=== PATIENT | female | born 1970 | race Caucasian/White ===

== ENCOUNTER → 2016-12-08 | Outpatient (CLI) | payer BC ==
--- NOTE | 2016-12-08 13:45 | WOMENS IMAGING REPORT ---
EXAM DESCRIPTION: BILAT SCREENING MAMMO W/CAD COMPLETED DATE/TIME: 12/08/2016 1:32 pm REASON FOR STUDY: SCREENING MAMMO Z12.31 ENCNTR SCREEN MAMMOGRAM FOR MALIGNANT NEOPLASM OF MARCO ANTONIO COMPARISON: November 2014 and September 2013 TECHNIQUE: Standard craniocaudal and mediolateral oblique views of each breast recorded using digita l acquisition. LIMITATIONS: None. FINDINGS: No masses, calcifications or architectural distortion. No areas of suspicion. Read with the assistance of CAD. .[facility] - R2 Cenova Version 1.3 .[facility] - R2 Cenova Version 1.3 .[facility] - R2 Cenova Version 2.4 .[facility] - R2 Cenova Version 2.4 .[facility] - R2 Director Speech Language Version 9.2 IMPRESSION: NORMAL MAMMOGRAM. BIRADS 1. BREAST DENSITY: b. There are scattered areas of fibroglandular density. BIRAD: 1 NEGATIVE RECOMMENDATION: ROUTINE SCREENING COMMENT: The patient has been notified of the results by letter per SA requirements. Additional no tification policies are in place for contacting patient with suspicious or incomplete findings. Quality ID #225: The [employer] recommends an annual screening mammogram for women aged 40 years or over. This facility utilizes a reminder system to ensure that all patients receive reminder letters, and/or direct phone calls for appointments. This includes reminders for routine scr eening mammograms, diagnostic mammograms, or other Breast Imaging Interventions when appropriate. Th is patient will be placed in the appropriate reminder system. The [employer] (ACR) has developed recommendations for screening MRI of the breast s in certain patient populations, to be used in conjunction with mammography. Breast MRI surveillanc e may be appropriate for women with more than 20% lifetime risk of developing breast cancer as deter mined by genetic testing, significant family history of the disease, or history of mantle radiation f or Hodgkins Disease. ACR Practice Guidelines 2008. TECHNICAL DOCUMENTATION: FINDING NUMBER: (1) ASSESSMENT: (1) JOB ID: [id number] [employer]- All Rights Reserved
== END ==
LOC: WI 13:10
PROVIDERS: ATTEND Advanced Practice Midwife
DX: Z12.31 Encounter for screening mammogram for malignant neoplasm of breast (principal)
CPT/HCPCS: 77067; G0202

== ENCOUNTER → 2017-04-13 | Outpatient (CLI) | payer BC ==
--- NOTE | 2017-04-13 13:51 | RADIOLOGY REPORT (SQ) ---
EXAM DESCRIPTION: HYSTEROSALPINGOGRAM; HYSTERO CATH/INJECTION COMPLETED DATE/TIME: 04/13/2017 1:36 pm REASON FOR STUDY: ESURE CHECK COMPARISON: None. PROCEDURE: PRE-PROCEDURE: Procedure was explained to the patient. She was told to expect cramping d uring the procedure and possible spotting post procedure. Procedure: Under direct visual inspection, the cervix was cannulated with the hysterosalpingogram dev ice and contrast injected gradually under low pressure. TECHNIQUE: Temporal fluoroscopic images acquired during the procedure stored to PACS. FLUOROSCOPY TIME: Less than 1 second 9 digital radiographic images saved to PACS. LIMITATIONS: None. FINDINGS: UTERUS: No identified anomalies. No synechia. RIGHT ADNEXA: The Essure insert is in satisfactory position with the proximal end at or near the corn ua. There is no passage of contrast into or through the fallopian tube. LEFT ADNEXA: The Essure insert is in satisfactory position with the proximal end at or near the cornu a. There is no passage of contrast into or through the fallopian tube. POST PROCEDURE: The patient tolerated the procedure with no adverse side effects. IMPRESSION: THE ESSURE INSERTS ARE IN SATISFACTORY POSITION WITH SATISFACTORY BILATERAL FALLOPIAN TU BE OCCLUSION. COMMENT: Quality ID 145: Final reports for procedures using fluoroscopy that document radiation exp osure indices, or exposure time and number of fluorographic images (if radiation exposure indices are not available) TECHNICAL DOCUMENTATION: JOB ID: [id number] [employer]- All Rights Reserved Reading location - IP/workstation name: [email or web address]
--- NOTE | 2017-04-13 13:51 | RADIOLOGY REPORT (SQ) ---
EXAM DESCRIPTION: HYSTEROSALPINGOGRAM; HYSTERO CATH/INJECTION COMPLETED DATE/TIME: 04/13/2017 1:36 pm REASON FOR STUDY: ESURE CHECK COMPARISON: None. PROCEDURE: PRE-PROCEDURE: Procedure was explained to the patient. She was told to expect cramping d uring the procedure and possible spotting post procedure. Procedure: Under direct visual inspection, the cervix was cannulated with the hysterosalpingogram dev ice and contrast injected gradually under low pressure. TECHNIQUE: Temporal fluoroscopic images acquired during the procedure stored to PACS. FLUOROSCOPY TIME: Less than 1 second 9 digital radiographic images saved to PACS. LIMITATIONS: None. FINDINGS: UTERUS: No identified anomalies. No synechia. RIGHT ADNEXA: The Essure insert is in satisfactory position with the proximal end at or near the corn ua. There is no passage of contrast into or through the fallopian tube. LEFT ADNEXA: The Essure insert is in satisfactory position with the proximal end at or near the cornu a. There is no passage of contrast into or through the fallopian tube. POST PROCEDURE: The patient tolerated the procedure with no adverse side effects. IMPRESSION: THE ESSURE INSERTS ARE IN SATISFACTORY POSITION WITH SATISFACTORY BILATERAL FALLOPIAN TU BE OCCLUSION. COMMENT: Quality ID 145: Final reports for procedures using fluoroscopy that document radiation exp osure indices, or exposure time and number of fluorographic images (if radiation exposure indices are not available) TECHNICAL DOCUMENTATION: JOB ID: [id number] [employer]- All Rights Reserved Reading location - IP/workstation name: [email or web address]
== END ==
LOC: RAD 12:45
PROVIDERS: ATTEND Obstetrics & Gynecology
DX: Z30.2 Encounter for sterilization (principal)
CPT/HCPCS: 58340; 74740

== ENCOUNTER 2018-07-29 12:48 | Observation (INO) | payer BC ==
[2018-07-29] MEDS ORDERED: ASPIRIN 81 MG TABLET, CHEWABLE PO ONE (12:57)
--- NOTE | 2018-07-29 13:13 | EKG REPORT ---
SEVERITY:- ABNORMAL ECG - SINUS TACHYCARDIA DAVID, CONSIDER BIATRIAL ABNORMALITIES BORDERLINE INFERIOR Q WAVES BORDERLINE PROLONGED QT INTERVAL : Confirmed by: Shawn Mata MD 29-Jul-2018 13:12:20
[2018-07-29 13:16] LABS: ABSOLUTE EOSINOPHILS # (AUTO) 0.2 10^3/uL (0.0-0.6); ABSOLUTE LYMPHOCYTES (AUTO) 5.7 10^3/uL (0.5-4.7); ABSOLUTE MONOCYTES (AUTO) 0.3 10^3/uL (0.1-1.4); ABSOLUTE NEUT (AUTO) 3.3 10^3/uL (1.7-8.2); BASOPHILS % (AUTO) 0.3 % (0-2); EOSINOPHILS % (AUTO) 2.5 % (0-6); HEMOGLOBIN 14.9 g/dL (12.0-15.5); LYMPHOCYTES % (AUTO) 59.6 % (13-45); MEAN CORPUSCULAR HGB CONC 33.8 g/dL (32.0-36.0); MEAN CORPUSCULAR VOLUME 86 fl (80-97); MONOCYTES % (AUTO) 3.2 % (3-13); PLATELET COUNT 341 10^3/uL (150-450); RED BLOOD COUNT 5.13 10^6/uL (3.72-5.28); RED CELL DISTRIBUTION WIDTH 13.6 % (11.5-14.0); SEGMENTED NEUTROPHILS % (AUTO) 34.4 % (42-78); TOTAL CELLS COUNTED % (AUTO) 100 %; WHITE BLOOD COUNT 9.5 10^3/uL (4.0-10.5)
[2018-07-29 13:23] LABS: INTERNATIONAL RATION (INR) 1.01; PARTIAL THROMBOPLASTIN TIME 24.7 SEC (23.5-35.8); PROTHROMBIN TIME 13.8 SEC (11.4-15.4)
[2018-07-29 13:25] LABS: D-DIMER 1.27 ug/mL (0.00-0.50)
[2018-07-29 13:39] LABS: ALANINE AMINOTRANSFERASE 20 U/L (9-52); ALBUMIN 3.9 g/dL (3.5-5.0); ALKALINE PHOSPHATASE 89 U/L (38-126); ANION GAP 13 (5-19); ASPARTATE AMINO TRANSFERASE 17 U/L (14-36); BILIRUBIN,DIRECT 0.1 mg/dL (0.0-0.4); BILIRUBIN,TOTAL 1.3 mg/dL (0.2-1.3); BLOOD UREA NITROGEN 13 mg/dL (7-20); CALCIUM 9.2 mg/dL (8.4-10.2); CARBON DIOXIDE 23 mmol/L (22-30); CHLORIDE 105 mmol/L (98-107); CREATINE KINASE 66 U/L (30-135); GLUCOSE 155 mg/dL (75-110); POTASSIUM 3.5 mmol/L (3.6-5.0); SODIUM 141.2 mmol/L (137-145); TOTAL PROTEIN 6.4 g/dL (6.3-8.2)
--- NOTE | 2018-07-29 13:40 | RADIOLOGY REPORT (SQ) ---
EXAM DESCRIPTION: CHEST SINGLE VIEW COMPLETED DATE/TIME: 07/29/2018 1:33 pm REASON FOR STUDY: bed 7 sob elevated hr COMPARISON: None. EXAM PARAMETERS: NUMBER OF VIEWS: One view. TECHNIQUE: Single frontal radiographic view of the chest acquired. RADIATION DOSE: NA LIMITATIONS: None. FINDINGS: LUNGS AND PLEURA: No opacities, masses or pneumothorax. No pleural effusion. MEDIASTINUM AND HILAR STRUCTURES: No masses. Contour normal. HEART AND VASCULAR STRUCTURES: Heart normal in size. Normal vasculature. BONES: No acute findings. HARDWARE: None in the chest. OTHER: No other significant finding. IMPRESSION: 1. NO ACUTE RADIOGRAPHIC FINDING IN THE CHEST. TECHNICAL DOCUMENTATION: JOB ID: [id number] [employer]- All Rights Reserved Reading location - IP/workstation name: [email or web address]
[2018-07-29] MEDS ORDERED: NORMAL SALINE 1000 ML 1,000 ML IV ONE (13:44)
[2018-07-29] MEDS ORDERED: METHYLPREDNISOLONE INJ 125 MG/2 ML SDV IV ONE (13:45)
[2018-07-29] MEDS ORDERED: ENOXAPARIN SODIUM INJ 100 MG/1 ML DISP.SYRIN SUBCUT ONE (13:48)
[2018-07-29] MEDS: MAGNESIUM SULFATE/D5W 1 GM/100 ML RTUPB IV SCH ×2 (13:52→13:57)
[2018-07-29] MEDS: IPRATROPIUM/ALBUTEROL 0.5-2.5 MG/3 ML AMPUL NEB SCH ×2 (13:52→21:49)
[2018-07-29 14:00] LABS: TROPONIN I < 0.012 ng/mL
--- NOTE | 2018-07-29 14:01 | ER Document Report ---
ED General - General Chief Complaint: Low Blood Pressure Stated Complaint: DIZZY, SHORT OF BREATH Time Seen by Provider: 07/29/18 13:35 Primary Care Provider: BRODIE AMES MD [Primary Care Provider] - Follow up as needed Notes: 47-year-old female who states she was having lunch when she started to have some shortness of breath nausea and vomiting x1. She denies any chest pain, fevers, calf pain or leg swelling. No recent trips or travel. No history of similar symptomatology. The patient does state that she was given an albuterol inhaler a few years ago with bronchitis. She does state a mild nonproductive cough for greater than a month. No night sweats or night fevers. Patient is not on estrogen supplements. No family history of blood clotting disorders. No aggravating or relieving factors. Patient denies any history of smoking, COPD, or asthma. TRAVEL OUTSIDE OF THE [place] IN LAST 30 DAYS: No - Related Data Allergies/Adverse Reactions: iodine Allergy (Verified 07/29/18 12:58) Past Medical History - Social History Smoking Status: Never Smoker Family History: Reviewed & Not Pertinent, Other - See HPI Review of Systems - Review of Systems Constitutional: denies: Fever EENT: denies: Eye discharge, Nose congestion, Nose discharge Cardiovascular: Lightheaded. denies: Chest pain, Palpitations Respiratory: Short of breath, Wheezing. denies: Hemoptysis Gastrointestinal: denies: Vomiting Genitourinary: denies: Dysuria Musculoskeletal: denies: Leg swelling Skin: denies: Rash Neurological/Psychological: Other - no slurred speech -: Yes All other systems reviewed and negative Physical Exam - Vital signs Vitals: Resp 19 07/29/18 12:57 Notes: Reviewed vital signs and nursing note as charted by RN. CONSTITUTIONAL: Alert and oriented; patient has obvious tachypnea HEAD: Normocephalic; atraumatic EYES: PERRL; Conjunctivae clear, sclerae non-icteric ENT: Normal nose; no rhinorrhea; moist mucous membranes; pharynx without lesions noted NECK: Supple without meningismus; non-tender; no cervical lymphadenopathy, no masses CARD: Tachycardic and regular; no murmurs; symmetric distal pulses RESP: Patient has obvious tachypnea. Minimal wheezing bilaterally. No rhonchi or rales ABD/GI: Normal bowel sounds; non-distended; soft, non-tender; no palpable organomegaly or masses BACK: The back appears normal and is non-tender to palpation EXT: Normal ROM in all joints; non-tender to palpation; no edema SKIN: No acute lesions noted NEURO: CN 2-12 intact; 5/5 bilateral upper and lower extremity strength with sensation intact to light touch PSYCH: The patient's mood and manner are appropriate. Grooming and personal hyg iene are appropriate. Course - Re-evaluation Re-evalutation: Given the history and physical examination, we placed the patient on the monitor. We obtain an EKG as well as basic labs, d-dimer, and a BNP. Patient is on oxygen satting 92% and is tachycardic. My suspicion for pulmonary embolism is medium to high. No risk factors however. We will provide fluids, magnesium, and albuterol Atrovent inhaler, and reassess. 07/29/18 14:00 Breathing has improved slightly. Given my still persistent concern given the elevated d-dimer and patient's presentation, I will provide a one-time dose of Lovenox before the patient proceeds with a CTA of the chest. 07/29/18 14:04 EKG shows heart of 110, sinus tachycardia, normal axis, no ST elevation or depression. 07/29/18 15:00 CTA of the chest as recorded. Patient's wheezing has improved with the breathing treatments and magnesium. ABG is pending. - Vital Signs Vital signs: Temp Pulse Resp BP Pulse Ox 14 116/92 H 100 07/29/18 15:00 07/29/18 14:21 07/29/18 15:00 - Laboratory Result Diagrams: 07/29/18 13:00 07/29/18 13:00 Laboratory results interpreted by me: 07/29/18 07/29/18 07/29/18 13:00 13:00 13:00 Seg Neutrophils % 34.4 L Lymphocytes % 59.6 H Absolute Lymphocytes 5.7 H D-Dimer 1.27 H Potassium 3.5 L Glucose 155 H NT-Pro-B Natriuret Pep 07/29/18 13:00 Seg Neutrophils % Lymphocytes % Absolute Lymphocytes D-Dimer Potassium Glucose NT-Pro-B Natriuret Pep 244 H Critical Care Note - Critical Care Note Total time excluding time spent on procedures (mins): 45 Discharge - Discharge Clinical Impression: SOB (shortness of breath), Hypoxia, Tachycardia Dyspnea Qualifiers: Dyspnea type: unspecified Qualified Code(s): R06.00 - Dyspnea, unspecified Condition: Fair Disposition: ADMITTED OBSERVATION Admitting Provider: Ping (Hospitalist) Unit Admitted: Telemetry Referrals: BRODIE AMES MD [Primary Care Provider] - Follow up as needed
--- NOTE | 2018-07-29 14:50 | RADIOLOGY REPORT (SQ) ---
EXAM DESCRIPTION: CTA CHEST COMPLETED DATE/TIME: 07/29/2018 2:39 pm REASON FOR STUDY: 7; SOB COMPARISON: None. TECHNIQUE: CT scan of the chest performed using helical scanning technique with dynamic intravenous contrast injection. Images reviewed with lung, soft tissue and bone windows. Reconstructed coronal and sagittal MPR images reviewed. Additional 3 dimensional post-processing performed to develop Maximal Intensity Projection images (NH P). All images stored on PACS. All CT scanners at this facility use dose modulation, iterative reconstruction, and/or weight based d osing when appropriate to reduce radiation dose to as low as reasonably achievable (ALARA). [facility]: Dose Right [facility]: CareDose [facility]: Dose Right [facility]: Teradose 4D [facility]: [employer] CONTRAST TYPE AND DOSE: 81 mL Omnipaque 350- low osmolar. Contrast bolus adequate for pulmonary arteries and aorta. RENAL FUNCTION: BUN 13 creatinine 0.79. RADIATION DOSE: CT Rad equipment meets quality standard of care and radiation dose reduction techniq ues were employed. CTDIvol: 19.4 - 46.3 mGy. DLP: 774 mGy-cm. . LIMITATIONS: None. FINDINGS: LUNGS AND PLEURA: No masses, infiltrates, or pneumothorax. No pleural effusions or pleura l calcifications. AORTA AND GREAT VESSELS: No aneurysm. No dissection. HEART: No pericardial effusion. No significant coronary artery calcifications. PULMONARY ARTERIES: No emboli visualized in the main pulmonary arteries or the segmental branches. HILAR AND MEDIASTINAL STRUCTURES: No identified masses or abnormal nodes. HARDWARE: None in the chest. UPPER ABDOMEN: No significant findings. Limited exam. THYROID AND OTHER SOFT TISSUES: No masses. No adenopathy. BONES: No acute or significant finding. 3D MIPS: Confirm above findings. OTHER: No other significant finding. IMPRESSION: NORMAL CTA OF THE CHEST. NO PULMONARY EMBOLI. COMMENT: Quality ID # [id number]: Final reports with documentation of one or more dose reduction techniques (e.g., Automated exposure control, adjustment of the mA and/or kV according to patient size, use of iterative reconstruction technique) TECHNICAL DOCUMENTATION: JOB ID: [id number] [employer] [facility]- All Rights Reserved Reading location - IP/workstation name: [email or web address]
--- NOTE | 2018-07-29 15:51 | PDOC H&P ---
History of Present Illness Admission Date/PCP: BRODIE AMES MD History of Present Illness: HONG VELAZQUEZ is a 47 year old female patient with no significant past medical history presented with chief complaint of shortness of breath, blurring of vision and tingling sensation in both her extremities. Patient has been in apparently good state of health up until this afternoon while she was having lunch she started to have some shortness of breath nausea and an episode of vomiting of ingested material. She denies any fever, chills, cough, palpitation, chest pain, diaphoresis, diarrhea, abdominal pain, urinary complaint is, lightheadedness, seizure or headache. Her blood works are unremarkable except for elevated d-dimer. CT of the chest abdomen and pulmonary embolism has been ruled out. After patient given nebulizer her shortness of breath is completely subsided. Patient saturates 91% while she is on 2 L of oxygen via nasal cannula. Social History Smoking Status: Never Smoker - Advance Directive Resuscitation Status: Full Code Family History Family History: Reviewed & Not Pertinent, Other - See HPI Parental Family History Reviewed: Yes Children Family History Reviewed: Yes Sibling(s) Family History Reviewed.: Yes Medication/Allergy Allergies/Adverse Reactions: iodine Allergy (Verified 07/29/18 12:58) Review of Systems Constitutional: ABSENT: chills, fever(s), headache(s), weight gain, weight loss Eyes: ABSENT: visual disturbances Ears: ABSENT: hearing changes Cardiovascular: ABSENT: chest pain, dyspnea on exertion, edema, orthropnea, palpitations Respiratory: PRESENT: dyspnea Gastrointestinal: ABSENT: abdominal pain, constipation, diarrhea, hematemesis, hematochezia, nausea, vomiting Genitourinary: ABSENT: dysuria, hematuria Musculoskeletal: ABSENT: joint swelling Integumentary: ABSENT: rash, wounds Neurological: ABSENT: abnormal gait, abnormal speech, confusion, dizziness, focal weakness, syncope Psychiatric: ABSENT: anxiety, depression, homidical ideation, suicidal ideation Endocrine: ABSENT: cold intolerance, heat intolerance, polydipsia, polyuria Hematologic/Lymphatic: ABSENT: easy bleeding, easy bruising Physical Exam Vital Signs: Temp Pulse Resp BP Pulse Ox 14 116/92 H 100 07/29/18 15:00 07/29/18 14:21 07/29/18 15:00 Intake & Output 07/28/18 07/29/18 07/30/18 06:59 06:59 06:59 Intake Total 83 Balance 83 Weight 88.904 kg General appearance: PRESENT: no acute distress, well-developed, well-nourished Head exam: PRESENT: atraumatic, normocephalic Eye exam: PRESENT: conjunctiva pink, EOMI, PERRLA. ABSENT: scleral icterus Ear exam: PRESENT: normal external ear exam Mouth exam: PRESENT: moist, tongue midline Neck exam: ABSENT: carotid bruit, JVD, lymphadenopathy, thyromegaly Respiratory exam: PRESENT: clear to auscultation kaylan. ABSENT: rales, rhonchi, wheezes Cardiovascular exam: PRESENT: RRR. ABSENT: diastolic murmur, rubs, systolic murmur Pulses: PRESENT: normal dorsalis pedis pul Vascular exam: PRESENT: normal capillary refill GI/Abdominal exam: PRESENT: normal bowel sounds, soft. ABSENT: distended, guarding, mass, organolmegaly, rebound, tenderness Rectal exam: PRESENT: deferred Extremities exam: PRESENT: full ROM. ABSENT: calf tenderness, clubbing, pedal edema Neurological exam: PRESENT: alert, awake, oriented to person, oriented to place, oriented to time, oriented to situation, CN II-XII grossly intact. ABSENT: motor sensory deficit Psychiatric exam: PRESENT: appropriate affect, normal mood. ABSENT: homicidal ideation, suicidal ideation Skin exam: PRESENT: dry, intact, warm. ABSENT: cyanosis, rash Results Laboratory Results: 07/29/18 13:00 07/29/18 13:00 07/29/18 07/29/18 13:00 13:00 WBC 9.5 RBC 5.13 Hgb 14.9 Hct 44.0 MCV 86 MCH 29.0 MCHC 33.8 RDW 13.6 Plt Count 341 Seg Neutrophils % 34.4 L Lymphocytes % 59.6 H Monocytes % 3.2 Eosinophils % 2.5 Basophils % 0.3 Absolute Neutrophils 3.3 Absolute Lymphocytes 5.7 H Absolute Monocytes 0.3 Absolute Eosinophils 0.2 Absolute Basophils 0.0 Sodium 141.2 Potassium 3.5 L Chloride 105 Carbon Dioxide 23 Anion Gap 13 BUN 13 Creatinine 0.79 Est GFR ( Amer) > 60 Est GFR (Non-Af Amer) > 60 Glucose 155 H Calcium 9.2 Total Bilirubin 1.3 AST 17 ALT 20 Alkaline Phosphatase 89 Total Protein 6.4 Albumin 3.9 07/29/18 07/29/18 07/29/18 13:00 13:00 13:00 Creatine Kinase 66 CK-MB (CK-2) 0.70 Troponin I < 0.012 NT-Pro-B Natriuret Pep 244 H Impressions: Chest X-Ray 07/29/18 12:57 IMPRESSION: 1. NO ACUTE RADIOGRAPHIC FINDING IN THE CHEST. Chest/Abdomen CTA 07/29/18 13:45 IMPRESSION: NORMAL CTA OF THE CHEST. NO PULMONARY EMBOLI. Assessment and Plan - Diagnosis (1) Acute respiratory failure with hypoxia Is this a current diagnosis for this admission?: Yes Plan: Patient presented with sudden onset shortness of breath, wheezing followed by an episode of nausea and vomiting. She saturates 91% while she is on 2 L of oxygen. Her symptoms are relatively improved with a dose of DuoNeb. We will put her on DuoNeb every 8 hours. Supplemental oxygen. Overnight observation.
[2018-07-29] MEDS ORDERED: ONDANSETRON HCL INJ/PF 4 MG/2 ML SDV IV PRN (15:52)
[2018-07-29] MEDS ORDERED: IPRATROPIUM/ALBUTEROL 0.5-2.5 MG/3 ML AMPUL NEB SCH (16:00)
[2018-07-29] MEDS ORDERED: DOCUSATE SODIUM 100 MG CAPSULE PO SCH (18:00)
[2018-07-29 21:45] LABS: D-DIMER 1.37 ug/mL (0.00-0.50); INTERNATIONAL RATION (INR) 1.02; PARTIAL THROMBOPLASTIN TIME 29.2 SEC (23.5-35.8); PROTHROMBIN TIME 13.9 SEC (11.4-15.4)
[2018-07-29] MEDS: FAMOTIDINE 20 MG TABLET PO SCH (21:52)
[2018-07-29] MEDS: DOCUSATE SODIUM 100 MG CAPSULE PO SCH (21:52)
[2018-07-30] MEDS: IPRATROPIUM/ALBUTEROL 0.5-2.5 MG/3 ML AMPUL NEB SCH ×2 (04:02→11:33)
[2018-07-30] MEDS: ENOXAPARIN SODIUM INJ 40 MG/0.4 ML DISP.SYRIN SUBCUT SCH (09:37)
[2018-07-30] MEDS: DOCUSATE SODIUM 100 MG CAPSULE PO SCH ×2 (09:40→21:55)
[2018-07-30] MEDS: FAMOTIDINE 20 MG TABLET PO SCH ×2 (09:40→21:55)
[2018-07-30] MEDS ORDERED: LEVALBUTEROL HCL NEB 1.25 MG/3 ML AMPUL NEB PRN (16:16)
[2018-07-30] MEDS ORDERED: ALBUTEROL SULFATE HFA (90 MCG/PUFF) 200 PUFF/8.5 GM MDI IH PRN (16:17)
--- NOTE | 2018-07-30 16:30 | PDOC PROGRESS REPORT ---
Subjective Progress Note for:: 07/30/18 Subjective:: 47 y.o. F with a questionable history of asthma presented to [facility] for nausea, dizziness, weakness, and hypotension. In the emergency department, the patient was noted to have a HR > 200 (although, not documented). At the time, the patient was complaining of dyspnea and SOB and she was treated with nebulizer treatments. Her HYPOtension was treated with IVF. Today, the patient reports she feels much better. Her HR remains elevated 105-115, although patient admits she does not know her baseline HR. When recounting the details of the patient's story, her clinical picture sounds like it is stemming from a cardiac arrhythmia rather than an acute on chronic asthma exacerbation. Her initial nausea, followed by vomiting and diaphoresis, dizziness and blurry vision all fits the picture of either a cardiac event (ACS) or arrhythmia. Additionally, the patient has a very significant family history of heart disease on her mother side of the family (multiple family members passing away prior to the age of 50 due to heart disease). Discussed these findings with account contact associate, Dr. Christianson, who agrees the patient warrants a more substantial cardiac work-up. Plan to keep patient overnight for echocardiogram evaluation. Plan to upgrade f [facility] to telemetry. Reason For Visit: ACUTE HYPOXEMIC RESPIRATORY FAILURE Physical Exam Vital Signs: Temp Pulse Resp BP Pulse Ox 98.6 F 89 17 121/81 100 07/30/18 14:31 07/30/18 14:31 07/30/18 12:28 07/30/18 14:31 07/30/18 14:31 Pulse Oximeter Continuous Start: 07/30/18 04:03 Freq: Status: Active Protocol: Document 07/30/18 04:03 CMI (Rec: 07/30/18 04:06 CMI [id number]) Pulse Oximetry Assessment Oxygen Saturation (92-100) 98 Oxygen Delivery Method Room Air Fraction of Inspired Oxygen (FIO2) 21 Equipment Usage Initial Set Up Continuous Pulse Oximeter 24 Hour Charge Charge Now Continuous SpO2 Machine # 7 Intake & Output 07/29/18 07/30/18 07/31/18 06:59 06:59 06:59 Intake Total 83 Balance 83 Weight 89.1 kg General appearance: PRESENT: no acute distress, obese Head exam: PRESENT: atraumatic, normocephalic Eye exam: PRESENT: conjunctiva pink, EOMI, PERRLA. ABSENT: scleral icterus Ear exam: PRESENT: normal external ear exam Mouth exam: PRESENT: moist, tongue midline Neck exam: ABSENT: carotid bruit, JVD, lymphadenopathy, thyromegaly Respiratory exam: PRESENT: clear to auscultation kaylan, symmetrical, unlabored. ABSENT: rales, rhonchi, wheezes Cardiovascular exam: PRESENT: RRR. ABSENT: diastolic murmur, rubs, systolic m urmur Pulses: PRESENT: normal radial pulses, normal dorsalis pedis pul Vascular exam: PRESENT: normal capillary refill GI/Abdominal exam: PRESENT: normal bowel sounds, soft. ABSENT: distended, guarding, mass, organolmegaly, rebound, tenderness Rectal exam: PRESENT: deferred Extremities exam: PRESENT: full ROM. ABSENT: calf tenderness, clubbing, pedal edema Musculoskeletal exam: PRESENT: ambulatory, full ROM Neurological exam: PRESENT: alert, awake, oriented to person, oriented to place, oriented to time, oriented to situation, CN II-XII grossly intact. ABSENT: motor sensory deficit Psychiatric exam: PRESENT: appropriate affect, normal mood. ABSENT: homicidal ideation, suicidal ideation Skin exam: PRESENT: dry, intact, warm. ABSENT: cyanosis, rash Results Laboratory Results: 07/29/18 13:00 07/29/18 13:00 07/29/18 07/29/18 07/29/18 13:00 13:00 13:00 Creatine Kinase 66 CK-MB (CK-2) 0.70 Troponin I < 0.012 NT-Pro-B Natriuret Pep 244 H 07/29/18 20:46 Creatine Kinase CK-MB (CK-2) Troponin I < 0.012 NT-Pro-B Natriuret Pep Impressions: Chest X-Ray 07/29/18 12:57 IMPRESSION: 1. NO ACUTE RADIOGRAPHIC FINDING IN THE CHEST. Chest/Abdomen CTA 07/29/18 13:45 IMPRESSION: NORMAL CTA OF THE CHEST. NO PULMONARY EMBOLI. Status: Imported from PACS Assessment and Plan - Diagnosis (1) Acute respiratory failure with hypoxia Is this a current diagnosis for this admission?: Yes Plan: Resolved Patient presented with dyspnea and SOB Initial SPO2 91% on 2 LPM nasal cannula, now 100% on room air Due to tachycardia, changed nebulizer treatments from DuoNeb to Xopenex every 4 hours as needed (2) Arrhythmia Is this a current diagnosis for this admission?: Yes Plan: SVT versus sinus tachycardia Reportedly, patient's initial HR was>200 BPM, but never documented Constellation of presenting symptoms -nausea, followed by vomiting, diaphoresis, extremity paresthesia, dizziness, blurry vision -possibly secondary to cardiac arrhythmia Plan for ECHOcardiogram today Discussed with Dr. Christianson Upgrade to Tele Will likely need 30 day continuous manager cosmetic to evaluate for arrhythmia Patient will need PCP and cardiology referral at discharge - Time Time Spent with patient: 15-24 minutes Medications reviewed and adjusted accordingly: Yes Anticipated discharge: Home Within: within 24 hours - Inpatient Certification Based on my medical assessment, after consideration of the patient's comorbidities, presenting symptoms, or acuity I expect that the services needed warrant INPATIENT care.: Yes I certify that my determination is in accordance with my understanding of Medicare's requirements for reasonable and necessary INPATIENT services [42 CFR 412.3e].: Yes Medical Necessity: Need For Continuous Telemetry Monitoring, Risk of Complication if Not Cared For in Hospital
--- NOTE | 2018-07-30 18:40 | XCELERA REPORT ---
[address] [address] Transthoracic Echocardiogram Report Name: HONG VELAZQUEZ Age: 47 yrs Gender: Female : 1970 Patient Status: Inpatient Patient Location: [address] [place] [address] Study Date: 07/30/2018 02:59 PM Height: 60 in Weight: 196 lb BSA: 1.9 m2 Procedure: A complete two-dimensional transthoracic echocardiogram was performed (2D, M-mode, spectral and color flow Doppler). The study was technically adequate with some images being suboptimal in quality. Reason For Study: Respiratory Distress Ordering Physician: CALDERON SWANSON Performed By: Stella Ho Interpretation Summary Study quality fair with some suboptimal images. Lack of contrast opacification limits evaluation for intracardiac mass/thrombus. LVEF appears hyperdynamic with LVEF above 70%. The right ventricle is normal in size and function. The transmitral spectral Doppler flow pattern is normal for age The aortic valve opens well. There is a trace amount of tricuspid regurgitation Right ventricular systolic pressure is normal. There is no pericardial effusion. The inferior vena cava appeared normal The aortic root is normal size. MMode/2D Measurements & Calculations RVDd: 4.0 cm LVIDd: 4.2 cm FS: 36.3 % Ao root diam: 2.6 cm IVSd: 0.89 cm LVIDs: 2.7 cm EDV(Teich): Ao root area: 79.3 ml LVPWd: 0.87 cm 5.5 cm2 ESV(Teich): 26.7 ml EF(Teich): 66.3 % EDV(MOD-sp4): SV(MOD-sp4): 80.5 ml 62.1 ml ESV(MOD-sp4): 18.4 ml EF(MOD-sp4): 77.2 % Doppler Measurements & Calculations MV E max eloise: MV dec slope: Ao V2 max: LV V1 max P.2 cm/sec 205.0 cm/sec 8.9 mmHg MV A max eloise: 687.5 cm/sec2 Ao max PG: LV V1 max: 87.7 cm/sec MV dec time: 0.15 sec16.8 mmHg 149.1 cm/sec MV E/A: 1.2 PA V2 max: TR max eloise: 112.8 cm/sec 262.7 cm/sec PA max P.1 mmHg TR max P.7 mmHg Left Ventricle The left ventricle is hyperdynamic. LV EF is above 70%. The transmitral spectral Doppler flow pattern is normal for age. Right Ventricle A moderator band is seen in the right ventricle. The right ventricle is normal in size and function. Atria The right atrium is normal. The left atrial size is normal. Mitral Valve The mitral valve is grossly normal. Aortic Valve The aortic valve opens well. The aortic valve is not well visualized secondary to technical limitations. There is a peak gradient of 16.81 mm of Hg. Tricuspid Valve The tricuspid valve is not well visualized secondary to technical limitations. There is a trace amount of tricuspid regurgitation. Right ventricular systolic pressure is normal. Pulmonic Valve The pulmonic valve is not well visualized. Great Vessels The aortic root is normal size. The inferior vena cava appeared normal. Effusions There is no pericardial effusion. : CALDERON SWANSON Sanjay
[2018-07-31 03:51] VITALS: BP 123/83
[2018-07-31 04:07] LABS: HEMATOCRIT 39.6 % (36.0-47.0); HEMOGLOBIN 13.2 g/dL (12.0-15.5); MEAN CORPUSCULAR HEMOGLOBIN 28.7 pg (27.0-33.4); MEAN CORPUSCULAR HGB CONC 33.3 g/dL (32.0-36.0); MEAN CORPUSCULAR VOLUME 86 fl (80-97); PLATELET COUNT 212 10^3/uL (150-450); RED CELL DISTRIBUTION WIDTH 13.9 % (11.5-14.0); WHITE BLOOD COUNT 11.7 10^3/uL (4.0-10.5)
[2018-07-31] MEDS: FAMOTIDINE 20 MG TABLET PO SCH (11:10)
[2018-07-31] MEDS: DOCUSATE SODIUM 100 MG CAPSULE PO SCH (11:10)
[2018-07-31] MEDS: ENOXAPARIN SODIUM INJ 40 MG/0.4 ML DISP.SYRIN SUBCUT SCH (13:21)
== END 2018-07-31 13:50 | disposition home or self-care (01) ==
LOC: ER 12:48 → UNDOADMOB 17:16 → EH 17:16 → 2N 21:04 → 5 07-30 14:11
PROVIDERS: ADMIT Internal Medicine; ATTEND Internal Medicine
DX: J96.01 Acute respiratory failure with hypoxia (principal); R11.2 Nausea with vomiting, unspecified; R42 Dizziness and giddiness; I95.9 Hypotension, unspecified; R53.1 Weakness; I49.9 Cardiac arrhythmia, unspecified; R61 Generalized hyperhidrosis; R20.2 Paresthesia of skin; H53.8 Other visual disturbances; R79.89 Other specified abnormal findings of blood chemistry; Z82.49 Family history of ischemic heart disease and other diseases of the circulatory system
CPT/HCPCS: 93005; 94640 ×3; 99291; 96372; 96361; 96374; 96375; 36415 ×2; 82553; 82550; 85025; 85027; 85610; 85730; 80053; 84484; 85379; 83880; 93306; 71045; 71275; 93010; 94762; G0378 ×4; J2930; J1650 ×2; J3475; J3490 ×3; J7030; J7620 ×2